=== PATIENT | female | born 1990 | race Caucasian/White ===

== ENCOUNTER 2019-06-19 06:58 | Day surgery (SDC) | payer OTHER ==
[~2019-06-19] VITALS: Ht 177.8 cm; Wt 120.2 kg
[2019-06-19 07:31] VITALS: BP 132/67
[2019-06-19 11:07] VITALS: BP 100/60
== END 2019-06-19 10:20 | disposition home or self-care (01) ==
LOC: GI 06:58 → OR 08:00 → GI 08:00
DX: R10.13 Epigastric pain (principal); R14.0 Abdominal distension (gaseous); G43.909 Migraine, unspecified, not intractable, without status migrainosus; J45.909 Unspecified asthma, uncomplicated; E07.9 Disorder of thyroid, unspecified; Z79.899 Other long term (current) drug therapy; Z91.040 Latex allergy status; Z91.018 Allergy to other foods; Z90.49 Acquired absence of other specified parts of digestive tract; Z98.890 Other specified postprocedural states
CPT/HCPCS: 43235; 87081; J1200; J1610; J2250; J2310; J3010; J3490